=== PATIENT | female | born 1975 ===

== ENCOUNTER 2024-11-22 11:45 | Inpatient (IN) | payer OTHER ==
[~2024-11-22] VITALS: Ht 167.6 cm; Wt 89.8 kg
[2024-11-22 16:36] VITALS: BP 130/67
[2024-11-26] MEDS ORDERED: CEFAZOLIN SODIUM 1,000 MG VIAL IV ONE (12:45)
[2024-11-26] MEDS ORDERED: HEMOSTATIC MATRIX 1 KIT KIT TOP ONE (12:45)
[2024-11-26] MEDS ORDERED: POVIDONE-IODINE 118 ML BOTT TOP ONE (12:45)
[2024-11-26] MEDS ORDERED: CHLORHEXIDINE GLUCONATE 120 ML BOTTLE TOP ONE (12:45)
[2024-11-26] MEDS ORDERED: hydrALAZINE HCL 20 MG VIAL IV ONE (13:00)
[2024-11-26] MEDS ORDERED: SUGAMMADEX SODIUM 200 MG/2 ML VIAL IV ONE (13:00)
[2024-11-26] MEDS ORDERED: PROMETHAZINE HCL 25 MG/ML AMPUL IV SCH (13:24)
[2024-11-26] MEDS ORDERED: MORPHINE SULFATE 4 MG/ML CARTRIDGE IV SCH (13:32)
[2024-11-26] MEDS ORDERED: MORPHINE SULFATE 4 MG/ML VIAL IV ONE (14:30)
[2024-11-26 17:20] LABS: BASO % 0.2 % (0.1-1.2); EOS # 0.01 (0.04-0.54); EOS % 0.1 % (0.7-7.0); LYMPH # 1.24 (1.18-3.74); LYMPH % 8.1 % (19.3-53.1); MEAN PLATELET VOLUME 11.00 fl (9.4-12.4); MONO # 0.53 (0.24-0.82); MONO % 3.5 % (4.7-12.5); NEUT # 13.44 (1.56-6.13); NEUT % 87.6 % (34.0-71.1); RED CELL DISTRIBUTION WIDTH 14.3 % (11.6-14.4)
[2024-11-26 17:45] VITALS: BP 142/85
[2024-11-26] MEDS ORDERED: SIMETHICONE 125 MG CAPSULE PO SCH (21:00)
[2024-11-26] MEDS ORDERED: GABAPENTIN 300 MG CAPSULE PO SCH (21:00)
[2024-11-27] VITALS: BP 140/80
[2024-11-27 04:00] VITALS: BP 122/68
[2024-11-27 04:17] LABS: BASO % 0.2 % (0.1-1.2); EOS # 0.15 (0.04-0.54); EOS % 1.2 % (0.7-7.0); LYMPH # 2.22 (1.18-3.74); LYMPH % 18.2 % (19.3-53.1); MEAN PLATELET VOLUME 10.70 fl (9.4-12.4); MONO # 0.65 (0.24-0.82); MONO % 5.3 % (4.7-12.5); NEUT # 9.15 (1.56-6.13); NEUT % 74.9 % (34.0-71.1); RED CELL DISTRIBUTION WIDTH 14.4 % (11.6-14.4)
[2024-11-27] MEDS ORDERED: IBUPROFEN800 MG PO (06:56)
[2024-11-27] MEDS ORDERED: GABAPENTIN300 MG PO (06:56)
[2024-11-27] MEDS ORDERED: SIMETHICONE125 M1 PO (06:57)
[2024-11-27 08:00] VITALS: BP 129/80
== END 2024-11-27 09:26 | disposition home or self-care (01) | DRG 743 ==
LOC: O/R 11-26 06:00 → SURH 11-26 09:45 → OB/GYN 11-26 15:56
PROVIDERS: ADMIT Obstetrics & Gynecology; ATTEND Obstetrics & Gynecology
PROC: 0UT9FZZ Resection of Uterus, Via Natural or Artificial Opening With Percutaneous Endoscopic Assistance (ICD-10-PCS; principal; 2024-11-26 09:45)
DX: D25.1 Intramural leiomyoma of uterus (principal); D25.2 Subserosal leiomyoma of uterus; D25.0 Submucous leiomyoma of uterus; N72 Inflammatory disease of cervix uteri